=== PATIENT | female | born 1945 | race Hispanic/Latino ===

== ENCOUNTER 2019-07-04 20:45 | Emergency (ER) | payer MEDICARE ==
[~2019-07-04] VITALS: Ht 157.5 cm; Wt 78.5 kg
--- OUTSIDE RECORDS SUMMARY | 2019-07-11 11:55 | XMS REPORT ---
Author Author [facility] Address Unknown Phone Unavailable Care Team Providers Care Performance Manager Name Role Phone Unavailable Unavailable Problems This patient has no known problems. Allergies, Adverse Reactions, Alerts This patient has no known allergies or adverse reactions. Medications This patient has no known medications. Results Test Description Test Time Test Comments Text Results Atomic Results Result Comments SCR MAMM BILATERAL JENNIFER CAD DIGITAL 2018-07-18 14:06:46 - SCR MAMM BILATERAL JENNIFER CAD DIGITALBILATERAL DIGITAL SCREENING MAMMOGRAM 3D/2D WITH CAD: 07/11/2018CLINICAL: Asymptomatic. Digital breast tomosynthesis was performed in addition to routine CC and MLO views. Current mammographic images were evaluated by either a [employer] M-Vu or a [employer] ImageChecker CAD (computer aided detection system). Comparison is made to exams dated 05/30/2017 mammogram, mammogram, 05/21/2015 mammogram, 05/19/2014 mammogram, 05/14/2013 mammogram, and 05/15/2012 mammogram - [facility]. There are scattered fibroglandular tissues in both breasts. There are benign vascular calcifications in both breasts. There also is a benign mass in the left breast. There is a mole marker on the right breast. No suspicious mass, architectural distortion, malignant type calcification, or lymph node abnormality detected. Breast architecture is stable compared to prior exams.IMPRESSION: BENIGNThere is no mammographic evidence of malignancy. Resume annual screening mammography in one year. Rk Ware M.D. ss/bhaskar:07/18/2018 14:06:46 Ticket Chopper Assembler: Emilia Lawrence , [facility] sent: BIRADS 1-2 Normal Mammogram BI-RADS: 2 Benign
== END 2019-07-04 21:39 | disposition home or self-care (01) ==
LOC: ER 20:45
DX: I10 Essential (primary) hypertension (principal)
CPT/HCPCS: 99282

== ENCOUNTER 2020-07-22 12:45 | Emergency (ER) | payer MEDICARE ==
[~2020-07-22] VITALS: Ht 157.5 cm; Wt 77.1 kg
[2020-07-22] MEDS ORDERED: LIDOCAINE VISC 2% SOLN 15 ML UDC ONE (14:03)
[2020-07-22] MEDS ORDERED: BELLADONNA ALK/PHENOBARBITAL 5 ML UDC ONE (14:04)
[2020-07-22] MEDS ORDERED: MAGNESIUM/ALUMINUM/SIMETHICONE 30 ML UDC ONE (14:04)
[2020-07-22] MEDS ORDERED: DONNATAL/LIDOCAINE/MAALOX 30 ML SUSP PO SCH (15:00)
== END 2020-07-22 14:15 | disposition home or self-care (01) ==
LOC: FSED 13:10
DX: R10.13 Epigastric pain (principal); K29.00 Acute gastritis without bleeding; I10 Essential (primary) hypertension; E11.40 Type 2 diabetes mellitus with diabetic neuropathy, unspecified; E78.5 Hyperlipidemia, unspecified
CPT/HCPCS: 99282

== ENCOUNTER 2020-10-21 18:27 | Emergency (ER) | payer MEDICARE ==
[~2020-10-21] VITALS: Ht 157.5 cm; Wt 77.1 kg
[2020-10-21] MEDS ORDERED: OXYMETAZOLINE HCL 0.05% NAS 1 SPRAY BTL ONE (19:00)
[2020-10-21] MEDS ORDERED: CLONIDINE HCL 0.1 MG TAB PO ONE (19:00)
[2020-10-21 23:30] VITALS: BP 142/68
== END 2020-10-21 23:31 | disposition home or self-care (01) ==
LOC: ER 18:59
DX: J32.9 Chronic sinusitis, unspecified (principal); E11.42 Type 2 diabetes mellitus with diabetic polyneuropathy; I10 Essential (primary) hypertension; E78.5 Hyperlipidemia, unspecified; Z88.5 Allergy status to narcotic agent; Z88.7 Allergy status to serum and vaccine
CPT/HCPCS: 70486; 99282

== ENCOUNTER → 2025-02-19 | Outpatient (RCR) | payer MEDICARE | LOC: PT 01-22 13:52 | PROVIDERS: ATTEND Family Medicine | DX: M54.2 Cervicalgia (principal) ==